=== PATIENT | male | born 1975 | race Two or more races ===

== ENCOUNTER → 2022-09-07 | Emergency (ER) | payer OTHER ==
[~2022-09-07] VITALS: Ht 165.1 cm; Wt 85.7 kg
[2022-09-07 22:54] VITALS: BP 132/77
== END | disposition left against medical advice (07) ==
LOC: ER 22:33
DX: S61.012A Laceration without foreign body of left thumb without damage to nail, initial encounter (principal); Z53.21 Procedure and treatment not carried out due to patient leaving prior to being seen by health care provider; W45.8XXA Other foreign body or object entering through skin, initial encounter; Y93.89 Activity, other specified; Y92.89 Other specified places as the place of occurrence of the external cause; Y99.8 Other external cause status